=== PATIENT | male | born 1995 | race Caucasian/White ===

== ENCOUNTER 2022-09-08 17:39 | Emergency (ER) | payer BC, OTHER ==
[2022-09-08 17:48] VITALS: BP 130/93; PULSE 80; RESP 15; TEMP 97.9; BMI 30.7
== END 2022-09-08 18:15 | disposition home or self-care (01) ==
LOC: FER 17:39
DX: S61.211A Laceration without foreign body of left index finger without damage to nail, initial encounter (principal); W26.8XXA Contact with other sharp object(s), not elsewhere classified, initial encounter; Y93.G1 Activity, food preparation and clean up; Y92.009 Unspecified place in unspecified non-institutional (private) residence as the place of occurrence of the external cause
CPT/HCPCS: 99283-25